=== PATIENT | female | born 1990 | race Two or more races ===

== ENCOUNTER 2019-11-28 14:37 | Observation (INO) ==
--- NOTE | 2019-11-28 15:08 | ED.ABDFE ---
HPI - PCP Primary Care Physician: MATTHEW - Complaint Chief Complaint Doctors Comments: Patient is complaining of severe vaginal bleeding for the past3-4 hours getting progressively worst. States she was walking in her [id number]'s guarden when she felt something pop in her stomac h with gush of fluid with increased bleeding. states this is her second and she did not have any problems with the firist . She is a patient of Dr. Buckley in [place] and states she went to see him at 8 weeks and he could not heard a heart beat and he told her to come back and she went back at 10 weeks and he still could not hear a heart beat. Chief Complaint:: PT C/O SEVERE VAGINAL BLEEDING. PT WAS TOLD THIS WEEK THAT SHE WAS HAVING A MISCARRIAGE AND SHE WOULD HAVE TO BE SCHEDULED TO HAVE A DNC. PT STATES SHE WAS WALKING OUTSIDE WITH HER FAMILY AND SHE FELT A POP IN HER ABD AND SHE BEGAN TO HAVE FLUID MIXED WITH BLOOD COMING FROM HER VAGINA. - COVID-19 Coronavirus risk:travel/contact w/high risk person: No Has patient experienced Coronavirus symptoms: No - Source History Provided: Patient - Mode of arrival Mode of Arrival: Ambulatory - Timing Onset of Chief Complaint: 11/28/19 Came on: Gradually - Duration Duration: Intermittent Duration: Hours - Location Location: Suprapubic - Severity Severity: Moderate - Quality Quality: Aching, Sharp - Context Onset: Unknown - Modifying Worsening Factors: Nothing Improving Factors: Food - Associated signs and symptoms Associated Signs and Symptoms: Nausea, Vomiting - Time seen Time Seen by Provider: 11/28/19 15:07 PMH - PMH Past Medical History: No Past Surgical History: No - Family History History of Family Medical Conditions: Yes Family Medical History: Diabetes Mellitus - Social History Does any household member use tobacco: No Alcohol Use: None Do you use any recreational Drugs:: No Lives With: Family Lives Where: Home - Travel Risk Coronavirus risk:travel/contact w/high risk person: No Has patient experienced Coronavirus symptoms: No - infectious screening In the last 2 months have you had wt loss of >10#?: NO Have you had fever, night sweats or hemotysis?: No Have you traveled outside the country in the last 6 months?: No Isolation: Standard ROS - Review of Systems Constitutional: No Symptoms Reported Eyes: No Symptoms Reported ENTM: No Symptoms Reported Respiratoy: No Symptoms Reported Cardiovascular: No Symptoms Reported Gastrointestinal/Abdominal: No Symptoms Reported Genitourinary: No Symptoms Reported Neurological: No Symptoms Reported, Emotional Problems PE - General Limitations: No Limitations General Appearance: Alert, In Distress (slight) - Head Head Exam: Normal Inspection, Atraumatic, Normocephalic - Eyes Eye exam: Normal Appearance, PERRL, EOMI, Scleral Icterus. negative: Conjunctival Injection, Nystagmus, Miosis, Mydrasis, Periorbital Swelling, Periorbital Tenderness, Other - ENT ENT Exam: Normal Exam, Normal Oropharynx, Normal External Ear Exam, Mucous Memb ranes Moist, TM's Normal Bilaterally - Neck Neck Exam: Normal Inspection, Full ROM, Trachea Midline. negative: Tenderness, Meningismus, Lymphadenopathy, Thyromegaly, Other - Chest Chest Inspection: Normal Inspection - Respiratory Respiratory Exam: Normal Lung Sounds Bilat Respiratory Exam: Bilateral Clear to Auscultation - Cardiovascular Cardiovascular Exam: Regular Rate, Normal Rhythm, Normal Heart Sounds. negati ve: Bradycardia, Tachycardia, Irregular Rhythm, Systolic Murmur, Diastolic Murmur, Rubs, Gallop, Clicks, JVD, +S1, +S2, +S3, +S4, Other - Abdominal Exam Abdominal Exam: Normal Inspection, Normal Bowel Sounds, Soft. negative: Distention, Tenderness, Guarding, Rebound, Rigidity, Dimnished Bowel Sounds, Hyperactive Bowel Sounds, Hypoactive Bowel Sounds, Organomegaly, Trauma, Incision, Ascites, Mass, Bruit, Pulsatile Mass, Hernia, Other Abdominal Tenderness: negative: RUQ, RLQ, LUQ, LLQ, Epigastrium, Suprapubic, Diffuse, Mild, Moderate, Severe, Other - Rectal Rectal Exam: Deferred - Back Back Exam: Normal Inspection, Full ROM. negative: Tenderness, (R) CVA Tenderness, (L) CVA Tenderness, Muscle Spasm, Paraspinal Tenderness, Vertebral Tenderness, Rashes, (R) Sciatic Notch Tenderness, (L) Sciatic Notch Tendern, (R) Straight Leg Raise, (L) Straight Leg Raise, Other - Extremeties Extremities Exam: Normal Inspection, Full ROM, Tenderness, Normal Capillary Refill - External Exam: Female: Normal External Exam, Tenderness (suprapubic tenderness) : Speculum Exam (Female): Vaginal Bleeding, Foreign Body (copious blood clots in vaginal vault), Other (cervix dilated 3 cm with blood clot and small mucoid like substance in cervical os; bleeding controlled after blood clots removed from vaginal vault) : Bimanual Exam (female): Cervical Motion Tenderness, Uterine Enlargement (uterus 12 cl mainly to the left side of the pelvis; firm) - Neurologic Neurological Exam: Alert, Oriented X3, CN II-XII Intact, Normal Gait, Motor Sensory Deficit, Reflexes Normal - Psychiatric Psychiatric Exam: Normal Affect, Normal Mood - Skin Skin Exam: Dry, Intact - Vital Signs Vitals: Temperature 98.2 F Pulse Rate 70 Respiratory Rate 20 Blood Pressure [Left Arm] 121/79 Blood Pressure 108/57 O2 Sat by Pulse Oximetry 98 Course - Consultation Called: 19:55 Call Returned: 19:55 (Dr. Lara to admit) Consultation Comments: 1950 Dr. Lara to admit states give dose Methergine; IV fluids with Hgb every six hours and call him the results. Notify him if increased vaginal bleeding. Keep patient NPO. - Education/Counseling Education/Counseling: Patient, Family Educated On: Treatment, Diagnosis, Needs for Follow Up ROR - Labs Reviewed Laboratory Results Reviewed?: Yes (All labs and x-ray results reviewed and discussed with patient) Result Diagrams: 11/28/19 16:00 11/28/19 16:00 - XRAY XRAY Interpreted by: Radiologist (US OB: Heterogeneous echogoenicity and thickening of the endometrium and cervix with absence of intrauterin gestation in a reported 11 week is highly suspicious for missed/ in progress. No adnexal mass or complex pelvic free fluid.) - Labs Reviewed Laboratory: WBC 9.2 X10^3/uL (3.6-10.0) 11/28/19 16:00 RBC 4.42 X10^6/uL (3.5-5.4) 11/28/19 16:00 Hgb 12.3 g/dL (12.0-16.0) 11/28/19 16:00 Hct 36.4 % (36.0-47.0) 11/28/19 16:00 MCV 82.3 fL (80.0-100.0) 11/28/19 16:00 MCH 27.7 pg (27.0-34.0) 11/28/19 16:00 MCHC 33.7 g/dL (33.0-35.0) 11/28/19 16:00 RDW 14.1 % (11.6-16.5) 11/28/19 16:00 Plt Count 293 X10^3/uL (150.0-450.0) 11/28/19 16:00 MPV 8.5 fL (7.4-11.0) 11/28/19 16:00 Neut % (Auto) 64.4 % (42.0-75.0) 11/28/19 16:00 Lymph % (Auto) 27.6 % (21.0-51.0) 11/28/19 16:00 Hardy % (Auto) 5.7 % (0.0-13.0) 11/28/19 16:00 Eos % (Auto) 2.0 % (0.9-2.9) 11/28/19 16:00 Baso % (Auto) 0.3 % (0.2-1.0) 11/28/19 16:00 Neut # (Auto) 6.0 x10^3/uL (2.2-4.8) H 11/28/19 16:00 Lymph # (Auto) 2.6 X10^3/uL (1.3-2.9) 11/28/19 16:00 Hardy # (Auto) 0.5 x10^3/uL (0.3-0.8) 11/28/19 16:00 Eos # (Auto) 0.2 x10^3/uL (0.0-0.2) 11/28/19 16:00 Baso # (Auto) 0.0 X10^3/uL (0.0-0.1) 11/28/19 16:00 Absolute Nucleated RBC 0.0 /100WBC 11/28/19 16:00 Sodium 139 mmol/L (136-145) 11/28/19 16:00 Corrected Sodium 140 mmol/L (136-145) 11/28/19 16:00 Potassium 3.8 mmol/L (3.5-5.1) 11/28/19 16:00 Chloride 103 mmol/L (98-107) 11/28/19 16:00 Carbon Dioxide 24.1 mmol/L (21-32) 11/28/19 16:00 BUN 8 mg/dL (7-18) 11/28/19 16:00 Creatinine 0.78 mg/dL (0.55-1.02) 11/28/19 16:00 Est GFR (MDRD) Af Amer > 60 (>60) 11/28/19 16:00 Est GFR (MDRD) Non-Af > 60 (>60) 11/28/19 16:00 Glucose 125 mg/dL (65-99) H 11/28/19 16:00 Calcium 8.7 mg/dL (8.5-10.1) 11/28/19 16:00 Corrected Calcium TNP 11/28/19 16:00 Total Bilirubin 0.10 mg/dL (0.2-1.0) L 11/28/19 16:00 AST 16 Units/L (15-37) 11/28/19 16:00 ALT 23 Units/L (12-78) 11/28/19 16:00 Alkaline Phosphatase 117 Units/L (46-116) H 11/28/19 16:00 Total Protein 7.4 g/dL (6.4-8.2) 11/28/19 16:00 Albumin 3.5 g/dL (3.4-5.0) 11/28/19 16:00 Globulin 3.9 g/dL (2.5-4.5) 11/28/19 16:00 Albumin/Globulin Ratio 0.9 Ratio (1.1-2.1) L 11/28/19 16:00 HCG, Quant 823 mIU/mL (0-6) H 11/28/19 16:00 Blood Type B POSITIVE 11/28/19 16:00 Antibody Screen Negative 11/28/19 16:00 Opioid - Opioid Risk Tool Age (Yogi box if 16-45): Yes History of Preadolescent Sexual Abuse: No Total: 1 Total Score Risk Category: Low Risk - Diagnosis Discharge Problem: Vaginal hemorrhage, , Hyperglycemia - Discharge Plan Disposition: ADMITTED INPATIENT Condition: Stable - Follow ups/Referrals Follow ups/Referrals: NFD,None [Primary Care Provider] - 3 days - Instructions
[2019-11-28 16:12] LABS: BASOPHILS % (AUTO) 0.3 % (0.2-1.0); EOSINOPHILS # (AUTO) 0.2 x10^3/uL (0.0-0.2); HEMATOCRIT 36.4 % (36.0-47.0); HEMOGLOBIN 12.3 g/dL (12.0-16.0); LYMPHOCYTES # (AUTO) 2.6 X10^3/uL (1.3-2.9); LYMPHOCYTES % (AUTO) 27.6 % (21.0-51.0); MEAN CORPUSCULAR HEMOGLOBIN 27.7 pg (27.0-34.0); MEAN CORPUSCULAR HGB CONC 33.7 g/dL (33.0-35.0); MEAN CORPUSCULAR VOLUME 82.3 fL (80.0-100.0); MEAN PLATELET VOLUME 8.5 fL (7.4-11.0); MONOCYTES # (AUTO) 0.5 x10^3/uL (0.3-0.8); MONOCYTES % (AUTO) 5.7 % (0.0-13.0); NEUTROPHILS % (AUTO) 64.4 % (42.0-75.0); PLATELET COUNT 293 X10^3/uL (150.0-450.0); RED BLOOD COUNT 4.42 X10^6/uL (3.5-5.4); RED CELL DISTRIBUTION WIDTH 14.1 % (11.6-16.5); WHITE BLOOD COUNT 9.2 X10^3/uL (3.6-10.0)
[2019-11-28] MEDS ORDERED: NS 1000 ML 1,000 ML ONE (16:13)
[2019-11-28 16:14] LABS: ALANINE AMINOTRANSFERASE 23 Units/L (12-78); ALBUMIN 3.5 g/dL (3.4-5.0); ALKALINE PHOSPHATASE 117 Units/L (46-116); ASPARTATE AMINO TRANSFERASE 16 Units/L (15-37); BLOOD UREA NITROGEN 8 mg/dL (7-18); CALCIUM 8.7 mg/dL (8.5-10.1); CARBON DIOXIDE 24.1 mmol/L (21-32); CHLORIDE 103 mmol/L (98-107); COR NA(FOR HYPERGLY) 140 mmol/L (136-145); CREATININE 0.78 mg/dL (0.55-1.02); SODIUM 139 mmol/L (136-145); TOTAL PROTEIN 7.4 g/dL (6.4-8.2); eGFR NON BLACK RACES > 60 (>60)
[2019-11-28] MEDS ORDERED: NS 1000 ML 1,000 ML IV ONE (16:18)
[2019-11-28] MEDS ORDERED: LR 1000 ML IV 1,000 ML IV ONE ×4 (18:16→20:04)
[2019-11-28] MEDS ORDERED: ZOFRAN INJ 4 MG VIAL IVP ONE (18:16)
[2019-11-28] MEDS ORDERED: ZOFRAN INJ 4 MG VIAL ONE (18:18)
--- NOTE | 2019-11-28 19:42 | US ---
[id number] WEEK OB WITH HEAVY BLEEDING AND PAIN ONSET 1 DAY, QUANT 823STUDYOB LESS THAN 14 WEEKSCOMPARISONNone availableTECHNIQUEMultiple blanton scale and color flow Doppler images of the pelvis were obtained.FINDINGSUterus measures 7.5 x 5.0 x 5.3 cm. Image echo complex is 17 mm in thickness. No gestational sac or pseudo gestational sac identified. Increased fullness and heterogeneous echogenicity within cervix.Both ovaries are well visualized with normal appearance and absence of an adnexal mass or complex free fluid within the pelvis.Impression:Heterogeneous echogenicity and thickening of the endometrium and cervix with absence of intrauterine gestation in a reported 11 week is highly suspicious for a missed/ in progress. Correlation with pelvic examination and trending beta HCG is recommended for confirmation.No adnexal mass or complex pelvic free fluid.Electronically signed by: TONY MORENO (November 28, 2019 19:41:02)
[2019-11-28] MEDS ORDERED: METHERGINE IM ONE (19:48)
[2019-11-28] MEDS: LR 1000 ML IV 1,000 ML IV SCH (20:09)
[2019-11-28 20:28] LABS: BASOPHILS # (AUTO) 0.1 X10^3/uL (0.0-0.1); BASOPHILS % (AUTO) 1.4 % (0.2-1.0); EOSINOPHILS # (AUTO) 0.1 x10^3/uL (0.0-0.2); EOSINOPHILS % (AUTO) 1.1 % (0.9-2.9); HEMATOCRIT 31.1 % (36.0-47.0); HEMOGLOBIN 10.6 g/dL (12.0-16.0); LYMPHOCYTES # (AUTO) 0.9 X10^3/uL (1.3-2.9); LYMPHOCYTES % (AUTO) 9.3 % (21.0-51.0); MEAN CORPUSCULAR VOLUME 82.5 fL (80.0-100.0); MEAN PLATELET VOLUME 8.6 fL (7.4-11.0); MONOCYTES # (AUTO) 0.4 x10^3/uL (0.3-0.8); MONOCYTES % (AUTO) 3.7 % (0.0-13.0); NEUTROPHILS # (AUTO) 8.2 x10^3/uL (2.2-4.8); NEUTROPHILS % (AUTO) 84.5 % (42.0-75.0); PLATELET COUNT 259 X10^3/uL (150.0-450.0); RED BLOOD COUNT 3.78 X10^6/uL (3.5-5.4); RED CELL DISTRIBUTION WIDTH 14.2 % (11.6-16.5); WHITE BLOOD COUNT 9.6 X10^3/uL (3.6-10.0)
[2019-11-28 22:12] VITALS: BMI 37.6
[2019-11-29] MEDS: LR 1000 ML IV 1,000 ML IV SCH ×2 (04:55→13:31)
[2019-11-29 05:16] LABS: BILIRUBIN,URINE NEGATIVE (NEGATIVE); BLOOD/HEMOGLOBIN,URINE 5+ (NEGATIVE); GLUCOSE, URINE NEGATIVE (NEGATIVE); KETONES,URINE NEGATIVE (NEGATIVE); LEUKOCYTE ESTERASE ,URINE 2+ (NEGATIVE); NITRITES,URINE POSITIVE (NEGATIVE); PH,URINE 6.5 (5.0 - 8.0); PROTEIN,URINE 3+ (NEGATIVE); UROBILINOGEN,URINE 1+ (NORMAL)
[2019-11-29 05:22] LABS: APPEARANCE,URINE CLOUDY (CLEAR); COLOR,URINE BLOODY (YELLOW)
[2019-11-29 05:23] LABS: BACTERIA,URINE TRACE /HPF (NEGATIVE); RBC,URINE TNTC /HPF (0-3); SQUAMOUS EPITHELIAL CELL,UR RARE /HPF (NEGATIVE)
[2019-11-29 06:12] LABS: HEMATOCRIT 27.7 % (36.0-47.0); HEMOGLOBIN 9.6 g/dL (12.0-16.0)
[2019-11-29] MEDS ORDERED: VENOFER IV ONE (09:03)
[2019-11-29] MEDS ORDERED: NS 100 ML IV IV ONE (09:03)
[2019-11-29] MEDS ORDERED: NS 100 ML IV 100 ML with VENOFER 400 MG IV NR ×2 (11:16)
[2019-11-29] MEDS ORDERED: NS 100 ML IV 100 ML IV ONE (14:28)
[2019-11-29 16:57] VITALS: BP 104/54
== END 2019-11-29 18:40 | disposition home or self-care (01) ==
LOC: MED/SURG 14:47 → ER 14:47 → MED/SURG 21:18
PROVIDERS: ADMIT Obstetrics & Gynecology Obstetrics; ATTEND Obstetrics & Gynecology Obstetrics
CPT/HCPCS: 36415; 76801; 80053; 81001; 84702; 85014; 85018; 85025; 86850; 86900; 86901; 87086; 96360; 96361; 96365; 96367; 96372; 96374; 99284; A4222; G0378; J1756; J2210; J2405; J7030; J7050; J7120